=== PATIENT | male | born 1990 | race Caucasian/White ===

== ENCOUNTER 2018-05-08 18:34 | Emergency (ER) | payer MEDICAID ==
[~2018-05-08] VITALS: Ht 177.8 cm; Wt 95.3 kg
[2018-05-08 18:49] VITALS: BP 110/78
--- NOTE | 2018-05-08 19:23 | NUR ---
PT AMBULATED TO CHAIR E
--- NOTE | 2018-05-08 19:45 | NUR ---
PT TO ED WITH REQUEST FOR SUTURE REMOVAL TO MID UPPER BACK. SUTURES INTACT. NO S/S OF INFECTION NOTED. NO REDNESS NO DRAINAGE NOTED. HX--DENIES
[2018-05-08 20:11] VITALS: BP 110/78
--- NOTE | 2018-05-08 20:11 | NUR ---
Patient discharged with v/s stable. Written and verbal after care instructions given and explained. Patient verbalized understanding. Ambulatory with steady gait. All questions addressed prior to discharge. Advised to follow up with PMD.
== END 2018-05-08 20:11 | disposition home or self-care (01) ==
LOC: MED 18:34
DX: S21.219D Laceration without foreign body of unspecified back wall of thorax without penetration into thoracic cavity, subsequent encounter (principal); X58.XXXD Exposure to other specified factors, subsequent encounter
CPT/HCPCS: 99281